=== PATIENT | male | born 1995 | race Caucasian/White ===

== ENCOUNTER 2018-03-01 13:45 | Emergency (ER) | payer BC ==
[2018-03-01 13:54] VITALS: BP 142/78
[2018-03-01] MEDS: Lidocaine 2% 20ml Vial SUBCUT ONE (14:29)
[2018-03-01] MEDS: SODIUM BICARBONATE 2.4 MEQ VIAL INJ ONE (14:29)
--- NOTE | 2018-03-01 14:40 | ED Physician Documentation ---
General Adult - HPI Stated Complaint: Laceration to Finger Chief Complaint: Laceration/Recheck/Suture Onset: minutes Further Comments: yes (22 year old male patient presents with laceration to dorsal aspect of 2nd MCP area. Patient states he cut his hand with a knife when cutting up limes.) - ROS CONST: no problems EYES/ENT: none CVS/RESP: none GI/: none MS/SKIN/LYMPH: none NEURO/PSYCH: denies: headache - PAST HX Past History: none Other History: none Immunizations: tetanus (UTD), UTD Home Medications: Ambulatory Orders Medication Instructions Recorded NK 03/01/18 - SOCIAL HX Smoking History: non-smoker - FAMILY HX Family History: No - VITAL SIGNS Vital Signs: Vital Signs Temp Pulse Resp BP Pulse Ox 98.1 F 82 18 142/78 97 03/01/18 13:45 03/01/18 15:00 03/01/18 15:00 03/01/18 15:00 03/01/18 15:00 - REVIEWED ASSESSMENTS Nursing Assessment Reviewed: Yes Vitals Reviewed: Yes Procedures Wound Location: upper extremity (laceration to left dorsal aspect of 2nd MCP joint area; 4 cm, "J" shaped) Wound Length: 4 Wound's Depth, Shape: other ("J:) Wound Explored: clean Irrigated w/ Saline (ccs): 200 Betadine Prep?: No (chlorhexidine) Anesthesia: 2% Lidocaine (with neut) Volume of Anesthetic: 5 Wound Repaired With: sutures Suture Size/Type: 5:0 Number of Sutures: 8 Layer Closure?: No Progress: Wound edges well approximated. Tetanus is up to date Patient tolerated procedure well; reviewed discharge instructions - verbalized understanding. Progress - Progress Progress: No tendon visualized; flexion and extension fulling intact. ED Results Lab/Radiology - Orders Orders: ED Orders Category Date Time Status Lidocaine 2% 20ml Vial [Xylocaine] Med 03/01/18 14:08 Discontinued 4 mg SUBCUT NOW ONE Sodium Bicarbonate [Neut] Med 03/01/18 14:08 Discontinued 2.4 meq INJ NOW ONE General Adult Physical Exam - PHYSICAL EXAM GENERAL APPEARANCE: mild distress EENT: eye inspection normal RESPIRATORY: no resp distress, chest non-tender, breath sounds normal CVS: reg rate & rhythm, heart sounds normal, equal pulses, no murmur, no gallop, PMI nml, no JVD, no friction rub, 24 SKIN: warm/dry, normal color, other (laceration to left dorsal aspect of 2nd MCP joint area; 4 cm, "J" shaped) EXTREMITIES: non-tender, normal range of motion, no evidence of injury, no edema, J, [employer] NEURO: oriented X3, CN's nml as tested, motor nml, sensation nml, mood/affect nml Discharge Clincal Impression: Hand laceration Qualifiers: Encounter type: initial encounter Foreign body presence: without foreign body Laterality: left Qualified Code(s): S61.412A - Laceration without foreign body of left hand, initial encounter Referrals: Primary Doctor,No [Primary Care Provider] - 2 Days Additional Instructions: If you child has pain, carefully check the label for the correct dose. Keep the wound clean and dry until it has healed. You can wash or shower after 24 hours. Do not soak the wound in water and make sure it is dry afterwards (gently pat the area dry with a clean towel). Do not get into a swimming pool, hot tub, yao or river until your stitches are removed. To remove your dressing, gently pull it off. If needed, you can dampen it with water then gently pull it off. Clean the laceration twice a day with hibiclens and rinse with water clean away any scabbed area Apply thin coat of antibiotic ointment after cleaning the wound. Cover with non-adherent bandage if able. If you have pain, take simple pain relief medication such as Tylenol or ibuprofen. If bandages or dressings get wet, they will need to be changed. Call your doctor for any signs of symptom of infection redness, drainage, pain. Have your stitches removed at your doctors office in 10 days. Condition: Stable Disposition: HOME, SELF-CARE Decision to Admit: NO Decision Time: 14:40
== END 2018-03-01 15:00 | disposition home or self-care (01) ==
LOC: ED 13:45
DX: S61.412A Laceration without foreign body of left hand, initial encounter (principal); Y92.9 Unspecified place or not applicable; Y93.G3 Activity, cooking and baking; Y99.9 Unspecified external cause status; W26.8XXA Contact with other sharp object(s), not elsewhere classified, initial encounter
CPT/HCPCS: 12002; 96372

== ENCOUNTER 2018-09-10 14:23 | Emergency (ER) | payer BC, OTHER ==
[2018-09-10] MEDS ORDERED: SODIUM BICARBONATE 2.4 MEQ/5 ML VIAL INJ ONE (15:28)
[2018-09-10] MEDS ORDERED: LIDOCAINE HCL 1%/EPI. (1:100,000) MDV 20ML VIAL IJ ONE (15:28)
--- NOTE | 2018-09-10 15:54 | ED Physician Documentation ---
General Adult - HISTORIAN Historian: patient - HPI Chief Complaint: Laceration/Recheck/Suture Further Comments: yes (23 year old male patient presents with laceration to right lateral thigh; cut with a piece of metal while at work at [employer]. Last tetanus 4 years ago.) - ROS CONST: no problems EYES/ENT: none CVS/RESP: none GI/: none MS/SKIN/LYMPH: none NEURO/PSYCH: denies: headache - PAST HX Past History: none Allergies/Adverse Reactions: Allergies Allergy/AdvReac Type Severity Reaction Status Date / Time Sulfa (Sulfonamide Allergy Verified 09/10/18 15:45 Antibiotics) Home Medications: Ambulatory Orders Medication Instructions Recorded NK 03/01/18 - SOCIAL HX Smoking History: non-smoker - FAMILY HX Family History: No - VITAL SIGNS Vital Signs: Vital Signs Temp Pulse Resp BP Pulse Ox 142/78 03/01/18 15:00 - REVIEWED ASSESSMENTS Nursing Assessment Reviewed: Yes Vitals Reviewed: Yes Procedures Wound Location: other (right lateral leg) Wound Length: 2 cm Wound's Depth, Shape: linear Wound Explored: clean Irrigated w/ Saline (ccs): 300 Betadine Prep?: No (chlorhexidine) Anesthesia: Lidocaine w/ Epi Volume of Anesthetic: 8 Wound Repaired With: sutures Suture Size/Type: 4:0 Number of Sutures: 3 ED Results Lab/Radiology - Orders Orders: ED Orders Category Date Time Status Lidocaine 1%/Epinephrine [Xylocaine 1%-EPI 1:100,000] Med 09/10/18 15:28 Discontinued 5 ml IJ NOW ONE Sodium Bicarbonate [Neut] Med 09/10/18 15:28 Discontinued 2.4 meq INJ NOW ONE General Adult Physical Exam - PHYSICAL EXAM GENERAL APPEARANCE: [id number] N RESPIRATORY: no resp distress CVS: reg rate & rhythm SKIN: warm/dry, normal color, other (2 cm laceration to right lateral thigh; .5cm puncture wound) EXTREMITIES: non-tender NEURO: oriented X3, motor nml, sensation nml, mood/affect nml Discharge Clincal Impression: Laceration of leg Qualifiers: Encounter type: initial encounter Laterality: right Qualified Code(s): S81.811A - Laceration without foreign body, right lower leg, initial encounter Additional Instructions: Keep the wound clean and dry until it has healed. You can wash or shower after 24 hours. Do not soak the wound in water and make sure it is dry afterwards (gently pat the area dry with a clean towel). Do not get into a swimming pool, hot tub, yao or river until your stitches are removed. To remove your dressing, gently pull it off. If needed, you can dampen it with water then gently pull it off. Clean the laceration twice a day with hibiclens and rinse with water clean away any scabbed area Apply thin coat of antibiotic ointment after cleaning the wound. Cover with non-adherent bandage if able. If you have pain, take simple pain relief medication such as Tylenol or ibuprofen. If bandages or dressings get wet, they will need to be changed. Call your doctor for any signs of symptom of infection redness, drainage, pain. Have your stitches removed at your doctors office in 7-10 days. Discharged with bactroban ointment apply a thin coat twice a day. Condition: Stable Disposition: 01 HOME, SELF-CARE Decision to Admit: NO Decision Time: 15:54
[2018-09-10 18:12] VITALS: BP 133/68
== END 2018-09-10 16:01 | disposition home or self-care (01) ==
LOC: ED 14:23
DX: S71.111A Laceration without foreign body, right thigh, initial encounter (principal); W26.8XXA Contact with other sharp object(s), not elsewhere classified, initial encounter; Y93.89 Activity, other specified; Y92.89 Other specified places as the place of occurrence of the external cause; Y99.0 Civilian activity done for income or pay
CPT/HCPCS: 12001; 99282